=== PATIENT | male | born 1985 | race Caucasian/White ===

== ENCOUNTER 2021-03-20 11:06 | Emergency (ER) | payer BC ==
[~2021-03-20] VITALS: Ht 180.3 cm; Wt 99.8 kg
[2021-03-20] MEDS ORDERED: PROAIR HFA8.5 GM INH (12:45)
[2021-03-20] MEDS ORDERED: MUCINEX1200 MG PO (12:45)
== END 2021-03-20 13:52 | disposition home or self-care (01) ==
LOC: ER1 11:06
DX: U07.1 COVID-19 (principal); Z23 Encounter for immunization; I10 Essential (primary) hypertension; Z88.0 Allergy status to penicillin
CPT/HCPCS: 99283; M0243